=== PATIENT | male | born 1990 | race Caucasian/White ===

== ENCOUNTER 2020-02-07 14:30 | Emergency (ER) | payer OTHER, SELFPAY ==
--- NOTE | ~2020-02-07 | XR_ITS ---
XR hip RT min 3V w AP pelvis DATE: 02/07/2020 15:10 INDICATION: Patient fell down stairs. Right hip pain. TECHNIQUE: AP pelvis. AP, lateral and crosstable lateral views of right hip COMPARISON: None FINDINGS: There is subtle transverse lucency at the right lateral subcapital femoral neck area which is likely anatomic variation at the physis. Stress fracture would be expected at the medial aspect of the subcapital femoral neck, not the latera l aspect. If there is clinical concern for subtle nondisplaced right subcapital femoral neck fracture, consider CT or MR evaluation. Otherwise no recent fracture or dislocation, avascular necrosis or bone destruction of the right hip is evident. No pelvic fracture or bone destruction is evident. The pubic symphysis and sacroiliac joints are inta ct. IMPRESSION: Probable anatomic variation at the lateral aspect of the proximal right femoral physis; i f there is strong clinical concern for possible nondisplaced right subcapital femoral neck fracture, consider CT or MRI evaluation. Reviewed, dictated and finalized at location A. IMPRESSION: Probable anatomic variation at the lateral aspect of the proximal r ight femoral physis; if there is strong clinical concern for possible nondispla sameer right subcapital femoral neck fracture, consider CT or MRI evaluation.
--- NOTE | ~2020-02-07 | CT_ITS ---
EXAMINATION: CT cervical spine wo con DATE: 02/07/2020 15:00 INDICATION: Fall. Neck and low back pain TECHNIQUE: Computed tomography (CT) of the cervical spine was performed without intravenous contrast. Automated exposure control and iterative reconstruction technique were employed. Exam dose: 328.79 mGy-cm total exam DLP. COMPARISON: None FINDINGS: There is straightening of the cervical spine. No fracture or dislocation or locked facet. C 1 and C2 are normally aligned and the odontoid process is intact. No prevertebral soft tissue swellin g. Cervical interspaces are well preserved. IMPRESSION: Straightening; no fracture or dislocation or locked facet Reviewed, dictated and finalized at Location [facility]. Reviewed, dictated and finalized at location A.
--- NOTE | ~2020-02-07 | CT_ITS ---
EXAMINATION: CT lumbar spine wo con DATE: 02/07/2020 15:00 INDICATION: Fall down stairs yesterday. Low back pain. TECHNIQUE: Computed tomography (CT) of the lumbar spine was performed without intravenous contrast. A utomated exposure control and iterative reconstruction technique were employed. Exam dose: 263.55 mG y-cm total exam DLP. COMPARISON: None FINDINGS: The lumbar vertebrae are normally aligned. No fracture, spondylolysis or spondylolisthesis. No bone destruction. Disc spaces are relatively preserved. IMPRESSION: Negative Reviewed, dictated and finalized at Location [facility]. Reviewed, dictated and finalized at location A. IMPRESSION: Negative
--- NOTE | ~2020-02-07 | CT_ITS ---
EXAMINATION: CT hip RT wo con DATE: 02/07/2020 16:04 INDICATION: Fall downstairs. Right hip pain. TECHNIQUE: Computed tomography (CT) of the head was performed without intravenous contrast. The mA wa s adjusted according to patient size. Iterative reconstruction technique was employed. Exam dose: 18 0.53 mGy-cm total exam DLP. COMPARISON: 02/07/2020 pelvis/right hip FINDINGS: There is an approximately 7 mm wide lucency at the lateral physis of the proximal right fem ur, with surrounding sclerosis; the sclerosis indicates this is a chronic finding. This is likely jahaira tomic variation of the physis. No fracture or dislocation avascular necrosis or bone destruction is evident. The right hip joint spa ce is well preserved. The pubic symphysis and right sacroiliac joint are intact. IMPRESSION: No recent fracture or dislocation right hip Reviewed, dictated and finalized at Location [facility]. Reviewed, dictated and finalized at location A.
[2020-02-07 14:31] VITALS: BP 135/88; PULSE 90; RESP 20; TEMP 36.6; O2SAT 100
--- NOTE | 2020-02-07 14:53 | ED.BACK ---
HPI - Back Pain/Injury General Chief Complaint: Back Pain/Injury <Marianne Evans PA-C - Last Filed: 02/07/20 16:33> Stated Complaint: fell down 5 stairs yesterday <CYNDI White Last Filed: 02/07/20 16:33> Time Seen by Provider: 02/07/20 14:35 <CYNDI White Last Filed: 02/07/20 16:33> Source: patient <Marianne Evans PA-C - Last Filed: 02/07/20 16:33> Mode of arrival: ambulatory <CYNDI White Last Filed: 02/07/20 16:33> Limitations: no limitations <Marianne Evans PA-C - Last Filed: 02/07/20 16:33> History of Present Illness HPI Narrative: This is a 29 year old male that presents to the ER for low back pain after a fall last night. Reports he slipped and fell down about 5 stairs. Reports landing on his back. Denies hitting his head or loss of consciousness. Reports since he has had low back pain and right hip pain. Also reports he has had intermittent tingling in his bilateral upper extremities. Reports a history of a neck injury years ago. Denies fever, vision changes, vomiting, numbness, or weakness. <Marianne Evans PA-C - Last Filed: 02/07/20 16:33> Related Data Allergies/Adverse Reactions: Allergies Allergy/AdvReac Type Severity Reaction Status Date / Time CHLORINE Allergy Unknown Uncoded 02/07/20 14:31 <Marianne Evans PA-C - Last Filed: 02/07/20 16:33> Review of Systems Review of Systems: Narrative: CONSTITUTIONAL: Denies fever EYES: Denies visual changes GASTROINTESTINAL: Denies vomiting MUSCULOSKELETAL: Reports back pain, joint pain, and myalgia. NEUROLOGIC: Denies numbness, or weakness. <CYNDI White Last Filed: 02/07/20 16:33> All systems reviewed & are unremarkable except as noted in HPI and below <CYNDI White Last Filed: 02/07/20 16:33> PMFSH Past Medical History Medical History: Medical History (Updated 02/07/20 @ 16:33 by Marianne Evans PA-C) Allergies Asthma ARMANDO (generalized anxiety disorder) GERD (gastroesophageal reflux disease) Headache <Marianne Evans PA-C - Last Filed: 02/07/20 16:33> Surgical History Surgical History: Surgical History (Updated 09/11/19 @ 07:23 by Jeanine Troncoso [facility]) H/O nasal sinusotomy <Marianne Evans PA-C - Last Filed: 02/07/20 16:33> Family History Family History: Family History (Updated 07/27/16 @ 23:56 by DOCTOR UNKNOWN) Mother Family history of arthritis Father Family history of diabetes mellitus in first degree relative, Onset Age: 31 Patient's father is Grandparent Family history of malignant neoplasm of urinary bladder, Onset Age: 58 Acute myocardial infarction <Marianne Evans PA-C - Last Filed: 02/07/20 16:33> Social History Social History: Social History (Updated 10/13/19 @ 11:47 by Jeanine Troncoso [facility]) Smoking packs per day: 0.5 Smoking cigarettes per day: 10.0 Smoking status: Current some day smoker Second hand tobacco smoke exposure: Yes Smoking end date: 04/22/11 Alcohol intake: former <Marianne Evans PA-C - Last Filed: 02/07/20 16:33> Exam Narrative: Exam Narrative: GENERAL: Well-appearing, well-nourished, and in no acute distress. HEAD: Normocephalic, atraumatic. EYES: PERRLA and EOMI. ENT: Nares clear, no rhinorrhea or epistaxis. Mucous membranes moist. Oropharynx without tonsillar hypertrophy exudate or other lesions. Bilateral TMs pearly de la rosa non-bulging NECK: Supple. No adenopathy or masses. CHEST: Clear to auscultation. No respiratory distress. No wheezes rales or rhonchi HEART: Regular rate and rhythm. No murmur heard. Normal peripheral pulses. BACK: No midline thoracic spine tenderness. Tender to palpation of midline lumbar spine EXTREMITIES: Normal range of motion. No edema. Strength equal in bilateral upper and lower extremities (5/5) SKIN: Warm, dry, no rash. NEURO: No focal deficits. Alert and oriented x3. Cranial nerves II through XII lauro
== END 2020-02-07 17:03 | disposition home or self-care (01) ==
PROVIDERS: Emergency Provider Emergency Medicine; PCP Internal Medicine
DX: S39.92XA Unspecified injury of lower back, initial encounter (principal); S19.9XXA Unspecified injury of neck, initial encounter; M25.551 Pain in right hip; K21.9 Gastro-esophageal reflux disease without esophagitis; J45.909 Unspecified asthma, uncomplicated; F41.1 Generalized anxiety disorder; W10.9XXA Fall (on) (from) unspecified stairs and steps, initial encounter
CPT/HCPCS: 72125; 72131; 73502; 73700; 99284

== ENCOUNTER 2020-02-19 07:57 | Outpatient (RCR) | payer OTHER, SELFPAY ==
--- NOTE | 2020-02-19 09:14 | PTOPEVAL ---
PHYSICAL THERAPY EVALUATION Thank you for referring Casper Borjas to [facility] [place].? Casper was evaluated today with a dx of right hip pain after falling. The patient is scheduled to be seen for therapy? 1 x/week (patient request) for 4 weeks. Please review, sign, date and return this plan of care MARION. I agree with and certify that the following plan of care is medically necessary. Referring Physician Date Attending Provider: Opal Wheeler NP *PT Outpatient Evaluation Start: 02/19/20 08:07 Freq: Status: Active Protocol: Document 02/19/20 08:07 MLV (Rec: 02/19/20 09:13 MLV [id number]) Assessment Status Evaluation Evaluation Information Problem Diagnosis right hip injury/pain Onset 2 weeks ago Cause fell down steps Additional Evaluation Detail Patient wrestled and played football in school and had some hip pain that did not need treatment. The patient has fallen a few times and has aggravated his hip. 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 Subjective Information Patient reports hip pain Query Text:As Reported By Patient/ especially in the am or after Family sitting a while starting after a fall. The patient also notes cramping at hip while working and is stiff after long day of work. Diagnostic Tests X-Rays For This Problem Yes: no fractures Previous Treatments Previous Treatments For This Problem hamstring injury in high school- had therapy. pain off and on since then Pain Assessment Timing of Pain Assessment Timing of Pain Assessment Assessment Pain Scale Pain Scale Used Numeric (1 - 10) Self Report Pain Assessment Right Hip(s) Reported Pain Level 4 Pain Description Tightness Pain Frequency Acute Greatest Pain Intensity 10 Pain Aggravating Factors Exercise/Activity,Stair Climbing,Weight Bearing/ Standing Pain Behaviors Limping Additional Pain Comments LEFS score 34% disability Pain Score Pain Score 4: Self Report Interventions Used Interventions Used By Clinicians Education,Exercise,Heat Pain Relief Interventions Used By Heat,Medication Patient Lower Extremity Range of Motion General Lower Extremity Range of Motion Reason Not Measured WN
--- NOTE | 2020-02-23 08:43 | PCPTNOTE ---
Patient did not show up for scheduled appointment this date; left voicemail as reminder for next appointment.
--- NOTE | 2020-03-02 16:33 | PCPTNOTE ---
Patient did not show up for scheduled appointment this date. Patient was called. Patient reports he forgot he had an appt today. Patient feels he still needs therapy and plans to come to next appt. scheduled. Patient informed of date and time for next appt. Christina Austin PT
--- NOTE | 2020-03-09 16:28 | PCPTNOTE ---
Patient did not show up for scheduled appointment this date. PT called patient, no answer-left message and informed patient that next appt will be cancelled due to prior no shows.
--- NOTE | 2020-03-14 14:15 | PCPTNOTE ---
PHYSICAL THERAPY DISCHARGE SUMMARY Admitting Provider: Attending Provider: Opal Wheeler NP Patient:Casper Borjas Date of :1990 Patient has not returned for any further treatments since 02/19/2020, therefore he will be discharged at this time. Patient?s initial visit was on 02/19/2020 08:00 and he had a total of one visit. The goals have not been met. Thank you for referring this patient to [facility]. Please review, sign, date and return this discharge summary MARION. I have been updated about the patient's current status and I agree with discharge from the above service at this time. Referring Physician Date
== END 2020-03-15 11:09 | disposition home or self-care (01) ==
LOC: ANHPT 07:57
PROVIDERS: PCP Internal Medicine; Visit Provider Nurse Practitioner
DX: M25.551 Pain in right hip (principal)
CPT/HCPCS: 97110; 97161

== ENCOUNTER 2020-07-17 01:39 | Emergency (ER) | payer OTHER, SELFPAY ==
[2020-07-17 01:42] VITALS: BP 129/69; PULSE 65; RESP 18; TEMP 35.9; O2SAT 99
--- NOTE | 2020-07-17 02:02 | ED.GENADULT ---
HPI - General Adult General Chief complaint: Eye Problems Stated complaint: right eye injury Time Seen by Provider: 07/17/20 01:49 History of Present Illness HPI narrative: Patient is a 29-year-old gentleman who presents the emergency department with chief complaint of right eye discomfort. Patient reports that he was at work today working on a car and felt as though something may have fallen into his eye. The patient reports that feels as though there is something in his eye hurts whenever he tries to move he states his eyes watering all the time. Related Data Allergies Allergy/AdvReac Type Severity Reaction Status Date / Time CHLORINE Allergy Unknown Uncoded 07/17/20 01:44 Review of Systems Review of Systems: Narrative: A 10 system review of systems was completed on the patient and is negative except for what is stated in the HPI. Nursing and ancillary documentation was reviewed. [facility] Past Medical History Medical History Allergies Asthma ARMANDO (generalized anxiety disorder) GERD (gastroesophageal reflux disease) Headache Surgical History Surgical History H/O nasal sinusotomy Family History Family History Mother Family history of arthritis Father Family history of diabetes mellitus in first degree relative, Onset Age: 31 Patient's father is Grandparent Family history of malignant neoplasm of urinary bladder, Onset Age: 58 Acute myocardial infarction Social History Social History Smoking packs per day: 0.5 Smoking cigarettes per day: 10.0 Smoking status: Current some day smoker Second hand tobacco smoke exposure: Yes Smoking end date: 04/22/11 Alcohol intake: former Gender identity (if verbalized by the patient): Male Sexual Orientation (if Verbalized by the Patient): Straight or Heterosexual Exam Narrative: Exam Narrative: GENERAL: Well-appearing, well-nourished, and in no acute distress. HEAD: Normocephalic, atraumatic. EYES: PERRLA and EOMI. there is a foreign body present at the central portion of the right cornea ENT: Nares clear, no rhinorrhea or epistaxis. Mucous membranes moist. NECK: Supple. CHEST: Clear to auscultation. No respiratory distress. HEART: Regular rate and rhythm. No murmur heard. Normal peripheral pulses. ABDOMEN: Soft, nontender, nondistended, normal active bowel sounds. EXTREMITIES: Normal range of motion. No edema. SKIN: Warm, dry, no rash. NEURO: No focal deficits. Alert and oriented x3. PSYCH: Normal mood and affect. Course Vital Signs Vital signs: Vital Signs Temperature 35.9 C L 07/17/20 01:42 Pulse Rate 65 07/17/20 01:42 Respiratory Rate 18 07/17/20 01:42 Blood Pressure 129/69 07/17/20 01:42 Pulse Oximetry 99 07/17/20 01:42 Temperature 35.9 C L 07/17/20 01:42 Pulse Rate 65 07/17/20 01:42 Respiratory Rate 18 07/17/20 01:42 Blood Pressure 129/69 07/17/20 01:42 Pulse Oximetry 99 07/17/20 01:42 Procedures FB Removal Eye Foreign Body #1: Foreign Body Removal Date: 07/17/20 Foreign Body Removal Time: 02:04 Time Out performed: Yes Location: eye (R) Topical anesthetic used: proparacaine Foreign body: metal Evidence of corneal penetration: No Technique: cotton tip swab Procedure performed under: direct visualization with magnification Post-procedure medication: ophthalmic antibiotic Patient tolerated procedure: well Medical Decision Making Vital Signs Vital Signs: Vital Signs Temperature 35.9 C L 07/17/20 01:42 Pulse Rate 65 07/17/20 01:42 Respiratory Rate 18 07/17/20 01:42 Blood Pressure 129/69 07/17/20 01:42 Pulse Oximetry 99 07/17/20 01:42 Temperature
[2020-07-17] MEDS: TETANUS,DIPHTHERIA,AC PERTUSSIS ADULT (0.5 ML) BOOSTRIX IM (02:12)
[2020-07-17] MEDS: GENTAMICIN SULFATE 0.3% OP SOL 5 ML BTL 1 DROP EACH EYE (02:20)
[2020-07-17 02:29] VITALS: BP 130/76; PULSE 61; RESP 18; O2SAT 99
== END 2020-07-17 02:29 | disposition home or self-care (01) ==
LOC: ANHED 02:12
PROVIDERS: Emergency Provider Emergency Medicine; PCP Internal Medicine
DX: T15.01XA Foreign body in cornea, right eye, initial encounter (principal); J45.909 Unspecified asthma, uncomplicated; K21.9 Gastro-esophageal reflux disease without esophagitis; F17.210 Nicotine dependence, cigarettes, uncomplicated; Z23 Encounter for immunization
CPT/HCPCS: 65220; 90471; 90715; 99283; A9270

== ENCOUNTER → 2021-01-20 03:00 | Outpatient (CLI) | payer OTHER, SELFPAY ==
[2021-01-20 18:35] LABS: SARS-CoV-2 RNA PCR Negative
== END ==
PROVIDERS: PCP Internal Medicine; Visit Provider Clinical Nurse Specialist
DX: J02.9 Acute pharyngitis, unspecified (principal); Z20.822 Contact with and (suspected) exposure to COVID-19
CPT/HCPCS: C9803; U0003; U0005

== ENCOUNTER 2021-05-01 09:32 | Emergency (ER) | payer OTHER, SELFPAY ==
--- NOTE | ~2021-05-01 | XR_ITS ---
EXAMINATION: XR hand LT min 3V DATE: 05/01/2021 10:22 INDICATION: Left hand laceration TECHNIQUE: Posteroanterior, oblique and lateral views of the left hand were obtained. COMPARISON: None. FINDINGS: Soft tissue swelling, small amount of soft tissue gas and a few minute <0.5 mm radiopaque foreign bod ies along a skin laceration at the ulnar side of the hand. Bone alignment is normal. No fracture. Yesy nt spaces are normal. IMPRESSION: 1. No osseous abnormality. Reviewed, dictated and finalized at location A. CAL UNDERWRITER IMPRESSION: 1. No osseous abnormality.
[2021-05-01 09:48] VITALS: BP 120/56; PULSE 81; RESP 16; TEMP 36.1; O2SAT 100
--- NOTE | 2021-05-01 10:15 | ED.UPPEXIN ---
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 Denies decreased range of motion to hand/fingers, denies numbness tingling to finger. Endorses up-to-date on tetanus. MD complaint: injury to: left and hand Related Data Allergies Allergy/AdvReac Type Severity Reaction Status Date / Time CHLORINE Allergy Unknown Uncoded 07/17/20 01:44 Review of Systems Review of Systems: CONSTITUTIONAL: Denies body aches, fever, chills, or sweats. EYES: Denies visual changes, redness, or discharge. ENT: Denies rhinorrhea, congestion, sore throat, or otalgia. CARDIOVASCULAR: Denies chest pain, palpitations, or edema. RESPIRATORY: Denies cough or dyspnea. GASTROINTESTINAL: Denies abdominal pain, nausea, vomiting, or diarrhea. GENITOURINARY: Denies dysuria or hematuria. SKIN: lac to left medial hand MUSCULOSKELETAL: Denies back pain, joint pain, or myalgia. NEUROLOGIC: Denies headache, numbness, tingling, or weakness. PSYCH: Denies depression or anxiety. [facility] Past Medical History Medical History Allergies Asthma ARMANDO (generalized anxiety disorder) GERD (gastroesophageal reflux disease) Headache Surgical History Surgical History H/O nasal sinusotomy Family History Family History Mother Family history of arthritis Father Family history of diabetes mellitus in first degree relative, Onset Age: 31 Patient's father is Grandparent Family history of malignant neoplasm of urinary bladder, Onset Age: 58 Acute myocardial infarction Social History Social History Smoking packs per day: 0.5 Smoking cigarettes per day: 10.0 Smoking status: Current every day smoker Second hand tobacco smoke exposure: Yes Smoking end date: 04/22/11 Alcohol intake: former Gender identity (if verbalized by the patient): Male Sexual Orientation (if Verbalized by the Patient): Straight or Heterosexual Comments At time of signature, I have reviewed and agree with nursing past medical, surgical, social and family history unless otherwise noted. Please see nursing chart for further information. There is no relevant family history pertinent to the presenting complaint Exam Narrative: GENERAL: Well-appearing, well-nourished, and in no acute distress. HEAD: Normocephalic, atraumatic. EYES: EOMI. No redness or drainage. Conjunctivae normal. ENT: Mucous membranes pink and moist. No rhinorrhea. TMs normal bilaterally. Throat normal. Uvula midline. NECK: Normal AROM. Supple. No lymphadenopathy. CHEST: No respiratory distress. Clear to auscultation. HEART: Regular rate and rhythm. No murmur appreciated. Normal peripheral pulses. ABDOMEN: Soft, nontender, nondistended, normal active bowel sounds. MUSCULOSKELETAL: No bony tenderness. EXTREMITIES: Normal range of motion. No edema. SKIN: left hand lac medial approx 3cm, flap; Capillary refill normal. NEURO: No focal deficits. Alert and oriented x3. Gait steady. PSYCH: Normal affect. No signs of depression or anxiety. Course Course Emergency Course: Patient is aware of diagnosis, understands and agrees to treatment plan. Anticipatory guidance given. Patient agrees to follow-up as directed and is aware of reasons to seek care at the emergency department. Portions of this record may have been created with voice recognition software Level of Care: Express Care Visit Vital Signs Vital signs: Vital Signs [place]
== END 2021-05-01 12:10 | disposition home or self-care (01) ==
PROVIDERS: Emergency Provider Nurse Practitioner Family
DX: S61.412A Laceration without foreign body of left hand, initial encounter (principal); W26.8XXA Contact with other sharp object(s), not elsewhere classified, initial encounter; Y99.0 Civilian activity done for income or pay; Z87.891 Personal history of nicotine dependence; J45.909 Unspecified asthma, uncomplicated; K21.9 Gastro-esophageal reflux disease without esophagitis; F41.1 Generalized anxiety disorder
CPT/HCPCS: 12002; 73130; 99213; G0463

== ENCOUNTER 2021-05-03 17:24 | Emergency (ER) | payer OTHER, SELFPAY ==
[2021-05-03 17:43] VITALS: BP 134/71; PULSE 72; RESP 18; TEMP 36.8; O2SAT 97
--- NOTE | 2021-05-03 19:05 | ED.GENADULT ---
HPI - General Adult General Chief complaint: Wound/Laceration Stated complaint: stitches out Time Seen by Provider: 05/03/21 18:11 Source: patient, RN notes reviewed and old records reviewed Mode of arrival: ambulatory Limitations: no limitations History of Present Illness HPI narrative: Patient is a 30-year-old male who presents for wound check of the right hand he had laceration repair the palm a few days ago presents noting he has aching pain of the wound worse with touch and activity patient denies any fever chills injury trauma or other plaints presents nondistressed he has follow-up for next week for suture removal Related Data Allergies Allergy/AdvReac Type Severity Reaction Status Date / Time CHLORINE Allergy Unknown Uncoded 07/17/20 01:44 Review of Systems Review of Systems: CONSTITUTIONAL: Denies fever, chills, or sweats. SKIN: Denies rash or itching. MUSCULOSKELETAL: Denies back pain, joint pain. NEUROLOGIC: Denies numbness, or weakness. [facility] Past Medical History Medical History Allergies Asthma ARMANDO (generalized anxiety disorder) GERD (gastroesophageal reflux disease) Headache Surgical History Surgical History H/O nasal sinusotomy Family History Family History Mother Family history of arthritis Father Family history of diabetes mellitus in first degree relative, Onset Age: 31 Patient's father is Grandparent Family history of malignant neoplasm of urinary bladder, Onset Age: 58 Acute myocardial infarction Social History Social History Smoking packs per day: 0.5 Smoking cigarettes per day: 10.0 Smoking status: Current every day smoker Second hand tobacco smoke exposure: Yes Smoking end date: 04/22/11 Alcohol intake: former Gender identity (if verbalized by the patient): Male Sexual Orientation (if Verbalized by the Patient): Straight or Heterosexual Exam Narrative: GENERAL: Well-appearing, well-nourished, and in no acute distress. HEAD: Normocephalic, atraumatic. EYES: PERRLA and EOMI. ENT: Nares clear, no rhinorrhea or epistaxis. Mucous membranes moist. EXTREMITIES: Normal range of motion. No edema. SKIN: Warm, dry, no rash. Patient with well approximated wound of the palm of the right hand along the ulnar aspect no erythema fluctuance or drainage NEURO: No focal deficits. Alert and oriented x3. Cranial nerves II through XII grossly intact PSYCH: Normal mood and affect. Course Course Emergency Course: Patient presented for wound reevaluation will be discharged home with outpatient follow-up to be continued as planned given reasons to return felt appropriate for outpatient reevaluation Vital Signs Vital signs: Vital Signs Temperature 98.2 F 05/03/21 17:43 Pulse Rate 72 05/03/21 17:43 Respiratory Rate 18 05/03/21 17:43 Blood Pressure 134/71 05/03/21 17:43 Pulse Oximetry 97 05/03/21 17:43 Temperature 98.2 F 05/03/21 17:43 Pulse Rate 72 05/03/21 17:43 Respiratory Rate 18 05/03/21 17:43 Blood Pressure 134/71 05/03/21 17:43 Pulse Oximetry 97 05/03/21 17:43 Medical Decision Making MDM Narrative Medical decision making narrative: Patients injury or pain is consistent with musculoskeletal etiology. No signs of neurological or vascular compromise on exam. Compartments and tisues are soft without signs of compartment syndrome. Pain is felt appropriate for further evaluation on an outpatient basis. Vital Signs Vital Signs: Vital Signs Temperature 98.2 F 05/03/21 17:43 Pulse Rate 72 05/03/21 17:43 Respiratory Rate 18 05/03/21 17:43 Blood Pressure 134/71 05/03/21 17:43 Pulse Oximetry 97 05/03/21 17:43 Temperature 98.2 F 05/03/21 17:43 Pulse Rate 72 05/03/21 17:43 Res
== END 2021-05-03 19:27 | disposition home or self-care (01) ==
PROVIDERS: Emergency Provider Emergency Medicine; PCP Internal Medicine
DX: S61.411D Laceration without foreign body of right hand, subsequent encounter (principal); X58.XXXA Exposure to other specified factors, initial encounter
CPT/HCPCS: 99283

== ENCOUNTER 2021-11-21 10:25 | Outpatient (CLI) | payer OTHER, SELFPAY ==
[2021-11-21 20:01] LABS: Basophils Percent Auto 0.2 % (0.2-1.2); Eosinophils Absolute Auto 0.2 K/mm3 (0-0.3); Eosinophils Percent Auto 2.4 % (0-4.4); Hematocrit 44.6 % (42.0-52.0); Hemoglobin 15.2 g/dL (14.0-18.0); Immature Granulocyte Absolute 0.03 K/mm3 (0.00-0.031); Immature Granulocyte Percent A 0.4 % (0-0.5); Lymphocytes Absolute Auto 2.88 K/mm3 (0.9-3.2); Lymphocytes Percent Auto 34.7 % (18.3-44.2); Mean Corpuscular HGB Conc 34.1 g/dl (32-36); Mean Corpuscular Hemoglobin 29.9 pg (26-34); Mean Corpuscular Volume 87.8 fl (80-100); Mean Platelet Volume 11.5 fl (7.4-10.4); Monocytes Absolute Auto 0.6 K/mm3 (0.1-0.6); Monocytes Percent Auto 7.2 % (2.6-8.5); Neutrophils Absolute Auto 4.6 K/mm3 (1.3-6.7); Neutrophils Percent Auto 55.1 % (45.5-73.1); Platelet Count Result 247 k/mm3 (150-375); Red Blood Count 5.08 M/mm3 (4.6-6.20); White Blood Count 8.3 K/mm3 (4.5-10.0)
[2021-11-21 20:13] LABS: Alanine Aminotransferase 21 U/L (6-50); Albumin Level 4.3 g/dL (3.5-5.1); Alkaline Phosphatase 69 U/L (38-126); Anion Gap 8 mmol/L (8-16); Aspartate Amino Transferase 44 U/L (17-59); Bilirubin,Total 0.3 mg/dL (0.2-1.3); Blood Urea Nitrogen 12 mg/dL (9-20); Calcium 9.3 mg/dL (8.4-10.2); Carbon Dioxide 28 mmol/L (22-30); Chloride 101 mmol/L (98-107); Cholesterol 166 mg/dL (0-200); Estimated Glomerular Filt Rate > 60; Glucose 93 mg/dL (65-110); HDL Direct 40 mg/dL; Potassium 4.1 mmol/L (3.4-5.0); Sodium 137 mmol/L (137-145); Triglycerides 291 mg/dL (<150)
[2021-11-21 20:24] LABS: LDL Cholesterol Direct 74 mg/dL
[2021-11-21 21:05] LABS: Vitamin D 25 Hydroxy 42.8 ng/mL
== END 2021-11-21 10:26 | disposition home or self-care (01) ==
PROVIDERS: PCP Internal Medicine; Visit Provider Clinical Nurse Specialist
DX: Z13.228 Encounter for screening for other metabolic disorders (principal); Z13.220 Encounter for screening for lipoid disorders; E55.9 Vitamin D deficiency, unspecified; F41.1 Generalized anxiety disorder
CPT/HCPCS: 36415; 80053; 80061; 82306; 84443; 85025

== ENCOUNTER 2022-03-23 23:15 | Emergency (ER) | payer OTHER, SELFPAY ==
[2022-03-23 23:17] VITALS: BP 121/76; PULSE 70; RESP 18; TEMP 36.5; O2SAT 97
[2022-03-23] MEDS: TETRACAINE HCL 0.5% OPHTH SOLN 4 ML BTL 1 DROP EACH EYE (23:42)
[2022-03-23] MEDS: FLUORESCEIN SOD 1 MG/STRIP EACH EYE (23:42)
[2022-03-23] MEDS: DACRIOSE EYE IRRIGATION 118 ML BOTTLE LEFT EYE (23:42)
--- NOTE | 2022-03-23 23:52 | ED.EYEPROB ---
HPI - Eye Problem General Chief complaint: Eye Problems Stated complaint: foreign body in eye while cutting metal Time Seen by Provider: 03/23/22 23:28 Source: patient Mode of arrival: ambulatory Limitations: no limitations History of Present Illness HPI Narrative: This is a 31 year old male that presents to the ER for left eye irritation noted since yesterday. Reports he was working on his girlfriends car. Reports he was cutting a piece of metal. Reports he was wearing glasses. He has had foreign body sensation and irritation in the left eye since. Denies vision changes, redness or discharge. Related Data Allergies Allergy/AdvReac Type Severity Reaction Status Date / Time CHLORINE Allergy Unknown Uncoded 03/23/22 23:16 Review of Systems Review of Systems: CONSTITUTIONAL: Denies fever EYES: Denies visual changes, redness, or discharge. All systems reviewed & are unremarkable except as noted in HPI and below PMFSH Past Medical History Medical History Allergies Asthma ARMANDO (generalized anxiety disorder) GERD (gastroesophageal reflux disease) Headache Surgical History Surgical History H/O nasal sinusotomy Family History Family History Mother Family history of arthritis Father Family history of diabetes mellitus in first degree relative, Onset Age: 31 Patient's father is Grandparent Family history of malignant neoplasm of urinary bladder, Onset Age: 58 Acute myocardial infarction Social History Social History Smoking packs per day: 0.5 Smoking cigarettes per day: 10.0 Smoking status: Current every day smoker Second hand tobacco smoke exposure: Yes Smoking end date: 04/22/11 Alcohol intake: former Gender identity (if verbalized by the patient): Male Sexual Orientation (if Verbalized by the Patient): Straight or Heterosexual Exam Narrative: GENERAL: Well-appearing, well-nourished, and in no acute distress. HEAD: Normocephalic, atraumatic. EYES: PERRLA and EOMI. Eyelid everted, no foreign body is noted. Visual acuity 20/30 right eye, 20/30 left eye. Pressure is 12 in each eye. Small conjunctival abrasion not below the iris EXTREMITIES: Normal range of motion. No edema. SKIN: Warm, dry, no rash. NEURO: No focal deficits. Alert and oriented x3. PSYCH: Normal mood and affect Course Vital Signs Vital signs: Vital Signs Temperature 97.7 F 03/23/22 23:17 Pulse Rate 70 03/23/22 23:17 Respiratory Rate 18 03/23/22 23:17 Blood Pressure 121/76 03/23/22 23:17 Pulse Oximetry 97 03/23/22 23:17 Oxygen Delivery Room Air 03/23/22 23:17 Temperature 97.7 F 03/23/22 23:17 Pulse Rate 70 03/23/22 23:17 Respiratory Rate 18 03/23/22 23:17 Blood Pressure 121/76 03/23/22 23:17 Pulse Oximetry 97 03/23/22 23:17 Oxygen Delivery Room Air 03/23/22 23:17 MDM - Eye Problem MDM Narrative Medical decision making narrative: Patient presents emergency department after cutting a piece of metal yesterday. He was wearing glasses. Reporting a sensation of foreign body in the eye. I do not see any foreign bodies on exam. He did have a small conjunctival abrasion. Otherwise normal eye exam. His visual acuity is normal. His eye pressures are normal. Patient was updated on case findings. Will be started on antibiotic eye ointment. He was instructed he should have close follow-up with an valet parking attendant. He was given warnings to return to the ER Critical Care Time Critical Care Time Critical Care Time: No Discharge Plan Discharge Clinical Impression: Abrasion of conjunctiva, left Qualifiers: Encounter type: initial encounter Qualified Code(s): S05.02XA - Injury of conjunctiva and corneal abrasion without foreign body, left eye, initi
[2022-03-24] MEDS: ERYTHROMYCIN OPHTH OINTMENT 1 GM TUBE 1 APPLIC LEFT EYE (00:09)
== END 2022-03-24 00:20 | disposition home or self-care (01) ==
PROVIDERS: Emergency Provider Physician Assistant; PCP Internal Medicine
DX: S05.02XA Injury of conjunctiva and corneal abrasion without foreign body, left eye, initial encounter (principal); J45.909 Unspecified asthma, uncomplicated; K21.9 Gastro-esophageal reflux disease without esophagitis; Z87.891 Personal history of nicotine dependence; X58.XXXA Exposure to other specified factors, initial encounter
CPT/HCPCS: 99283; A9270

== ENCOUNTER 2022-05-30 09:56 | Outpatient (CLI) | payer BC, MEDICAID, SELFPAY ==
[2022-05-30 20:40] LABS: Anion Gap 5 mmol/L (8-16); Blood Urea Nitrogen 13 mg/dL (9-20); Calcium 8.8 mg/dL (8.4-10.2); Carbon Dioxide 30 mmol/L (22-30); Chloride 104 mmol/L (98-107); Cholesterol 180 mg/dL (0-200); Estimated Glomerular Filt Rate > 60; Glucose 88 mg/dL (65-110); HDL Direct 44 mg/dL; Sodium 139 mmol/L (137-145); Triglycerides 136 mg/dL (<150)
[2022-05-30 20:51] LABS: LDL Cholesterol Direct 96 mg/dL
== END 2022-05-30 09:57 | disposition home or self-care (01) ==
LOC: ANHGOSHLAB 09:58
PROVIDERS: PCP Internal Medicine; Visit Provider Clinical Nurse Specialist
DX: R51.9 Headache, unspecified (principal)
CPT/HCPCS: 36415; 80048; 80061

== ENCOUNTER 2023-01-19 01:44 | Emergency (ER) | payer BC, MEDICAID, SELFPAY ==
--- NOTE | ~2023-01-19 | CT_ITS ---
EXAMINATION: CT orbit BI wo/w con DATE: 01/19/2023 05:08 INDICATION: Left eye foreign body TECHNIQUE: Computed tomography (CT) of the orbits was performed without then with 100 cc of Omnipaque 350 intravenous contrast. The dose-length product (DLP) was 524.50 mGy-cm. Automated exposure contro l and iterative reconstruction technique were employed. COMPARISON: None. FINDINGS: No radiopaque foreign body is identified. There is a tiny focus of gas projecting in the an terior/superior left orbit just above the globe and near the insertion of the superior rectus muscle. There is subtle adjacent inflammatory change. The globes are intact. There is moderate opacification of the maxillary sinuses and mild opacification of the ethmoidal air cells. No facial fracture is id entified. IMPRESSION: 1. Tiny focus of gas projecting in the anterior/superior left orbit just above the globe near the sup erior rectus muscle. No definite radiopaque foreign body identified although radiographically occult foreign body could be present. 2. Moderate sinus disease. Reviewed, dictated and finalized at location F. IMPRESSION: 1. Tiny focus of gas projecting in the anterior/superior left orbit just above the globe near the superior rectus muscle. No definite radiopaque foreign body identified although radiographically occult foreign body could be present. 2. Moderate sinus disease.
--- NOTE | 2023-01-19 02:08 | ED.EYEPROB ---
HPI - Eye Problem General Chief complaint: Eye Problems <Estella Cordon PA-C - Last Filed: 01/19/23 04:41> Stated complaint: eye discomfort <Estella Cordon PA-C - Last Filed: 01/19/23 04:41> Time Seen by Provider: 01/19/23 02:00 <Estella Cordon PA-C - Last Filed: 01/19/23 04:41> History of Present Illness HPI Narrative: 32-year-old male reports for evaluation for a foreign body in his left eye. Patient states a few hours prior to arrival, he was buffing a tire with safety glasses on when he felt a something hit his eye. Since then he has had blurred vision and tearing as well as discomfort. He denies loss of vision, curtains, floaters. He wears glasses but denies contacts. <Estella Cordon PA-C - Last Filed: 01/19/23 04:41> Related Data Allergies/adverse reactions: Allergies Allergy/AdvReac Type Severity Reaction Status Date / Time CHLORINE Allergy Unknown Uncoded 01/19/23 01:45 <Estella Cordon PA-C - Last Filed: 01/19/23 04:41> Review of Systems Review of Systems: CONSTITUTIONAL: Denies fever, chills EYES: Denies visual changes, redness, or discharge. ENT: See HPI CARDIOVASCULAR: Denies chest pain, palpitations, or edema. RESPIRATORY: Denies cough or dyspnea. GASTROINTESTINAL: Denies abdominal pain, nausea, vomiting, or diarrhea. GENITOURINARY: Denies dysuria or hematuria. SKIN: Denies rash or itching. MUSCULOSKELETAL: Denies back pain, joint pain, or myalgia. NEUROLOGIC: Denies headache, numbness, dizziness, or weakness. PSYCHIATRIC: Denies anxiety or depression. <Estella Cordon PA-C - Last Filed: 01/19/23 04:41> PMFSH Past Medical History Medical History: Medical History Allergies Asthma ARMANDO (generalized anxiety disorder) GERD (gastroesophageal reflux disease) Headache <Estella Cordon PA-C - Last Filed: 01/19/23 04:41> Surgical History Surgical History: Surgical History H/O nasal sinusotomy <Estella Cordon PA-C - Last Filed: 01/19/23 04:41> Family History Family History: Family History Mother Family history of arthritis Father Family history of diabetes mellitus in first degree relative, Onset Age: 31 Patient's father is Grandparent Family history of malignant neoplasm of urinary bladder, Onset Age: 58 Acute myocardial infarction <Estella Cordon PA-C - Last Filed: 01/19/23 04:41> Social History Social History: Social History Smoking packs per day: 0.5 Smoking cigarettes per day: 10.0 Smoking status: Current every day smoker Second hand tobacco smoke exposure: Yes Smoking end date: 04/22/11 Alcohol intake: former Lack of Transportation: No Lack of Food: Never True Current Housing: I Have Housing Concerned About Future Housing: No Difficulty Paying Gas/Electric Bills: YES Difficulty Paying for Meds: YES Currently Unemployed: No Education: Decline to Answer Difficulty w/ Childcare or Family Care: No Gender identity (if verbalized by the patient): Male Sexual Orientation (if Verbalized by the Patient): Straight or Heterosexual <Estella Cordon PA-C - Last Filed: 01/19/23 04:41> Exam Narrative: GENERAL: Well-appearing, in no acute distress. HEAD: Normocephalic EYES: PERRLA, EOMI. Peripheral vision intact. Pinpoint foreign body overlying the left cornea. Small amount of edema to the left upper and lower eyelids. Small amount of clear tearing, no purulent drainage. Fluorescein stain shows rust ring and small corneal abrasion. Negative Marla sign CHEST: No respiratory distress. Clear to auscultation, no adventitious breath sounds. HEART: Regular rate and rhythm. No murmur heard. Normal peripheral pulses. EXTREMITIES: Nor
[2023-01-19 02:15] VITALS: BP 118/74; PULSE 74; RESP 18; TEMP 37; O2SAT 100
[2023-01-19] MEDS: HYDROcodone/acetaminophen (*CRX) 5-325 MG TABLET 1 TAB PO (04:04)
[2023-01-19 04:20] LABS: Basophils Percent Auto 0.3 % (0.2-1.2); Eosinophils Absolute Auto 0.2 K/mm3 (0-0.3); Eosinophils Percent Auto 1.8 % (0-4.4); Hematocrit 42.5 % (42.0-52.0); Hemoglobin 14.7 g/dL (14.0-18.0); Immature Granulocyte Absolute 0.04 K/mm3 (0.00-0.031); Immature Granulocyte Percent A 0.4 % (0-0.5); Lymphocytes Absolute Auto 2.88 K/mm3 (0.9-3.2); Lymphocytes Percent Auto 26.3 % (18.3-44.2); Mean Corpuscular HGB Conc 34.6 g/dl (32-36); Mean Corpuscular Hemoglobin 30.2 pg (26-34); Mean Corpuscular Volume 87.3 fl (80-100); Mean Platelet Volume 10.5 fl (7.4-10.4); Monocytes Absolute Auto 0.5 K/mm3 (0.1-0.6); Monocytes Percent Auto 4.8 % (2.6-8.5); Neutrophils Absolute Auto 7.3 K/mm3 (1.3-6.7); Neutrophils Percent Auto 66.4 % (45.5-73.1); Platelet Count Result 272 k/mm3 (150-375); Red Blood Count 4.87 M/mm3 (4.6-6.20); White Blood Count 10.9 K/mm3 (4.5-10.0)
[2023-01-19 04:34] LABS: Anion Gap 6 mmol/L (8-16); Blood Urea Nitrogen 12 mg/dL (9-20); Calcium 9.2 mg/dL (8.4-10.2); Carbon Dioxide 29 mmol/L (22-30); Chloride 104 mmol/L (98-107); Estimated CRCL calculation 102 ml/min; Estimated Glomerular Filt Rate > 60; Glucose 98 mg/dL (65-110); Potassium 3.8 mmol/L (3.4-5.0); Sodium 139 mmol/L (137-145)
[2023-01-19 07:07] VITALS: BP 119/74; PULSE 57; RESP 18; O2SAT 99
[2023-01-19 07:51] VITALS: BP 122/86; PULSE 60; RESP 16; O2SAT 99
== END 2023-01-19 07:53 | disposition home or self-care (01) ==
PROVIDERS: Physician Assistant; Emergency Provider Preventive Medicine Aerospace Medicine; PCP Internal Medicine
DX: T15.02XA Foreign body in cornea, left eye, initial encounter (principal); J45.909 Unspecified asthma, uncomplicated; K21.9 Gastro-esophageal reflux disease without esophagitis; Z87.891 Personal history of nicotine dependence
CPT/HCPCS: 36415; 65220; 70482; 80048; 85025; 99283; A9270; Q9967

== ENCOUNTER 2023-10-10 09:08 | Outpatient (NON) | payer OTHER, SELFPAY ==
[2023-10-10 14:57] LABS: Appearance Urine Cloudy (Clear); Bacteria Urine None Seen /hpf; Bilirubin Urine Negative (Negative); Blood Urine Negative (Negative); Color Urine Dark Yellow (Yellow); Glucose Urine UA Negative (Negative); Ketones Urine Negative (Negative); Leukocyte Esterase Ur Negative LEU/UL (Negative); Nitrate Urine Negative (Negative); Non Pathogenic Casts 0-2; Protein Urine Negative (Negative); RBC Urine 0-2 /hpf (0-2); Specific Grav Ur 1.025 (1.001-1.035); Squamous Epithelial Cell Urine None Seen /hpf (Few); WBC Urine 0-5 /hpf (0-3)
[2023-10-10 15:00] LABS: Add Urine Microscopic? YES
== END 2023-10-10 09:09 | disposition home or self-care (01) ==
LOC: ANHGOSHLAB 09:09
PROVIDERS: PCP Internal Medicine; Visit Provider Clinical Nurse Specialist
DX: R35.0 Frequency of micturition (principal); R31.9 Hematuria, unspecified
CPT/HCPCS: 81001